=== PATIENT | male | born 2005 | race Caucasian/White ===

== ENCOUNTER 2024-12-14 11:37 | Emergency (ER) | payer BC ==
[~2024-12-14] VITALS: Ht 185.4 cm; Wt 72.6 kg
[2024-12-14] MEDS ORDERED: FEXO-25 PO (11:43)
[2024-12-14 12:19] VITALS: BP 128/71; TEMP 98; O2SAT 98
== END 2024-12-14 12:19 | disposition home or self-care (01) ==
LOC: ER 11:39
DX: Q67.7 Pectus carinatum (principal); R07.89 Other chest pain; R06.03 Acute respiratory distress
CPT/HCPCS: 71045; A4606; A4663